=== PATIENT | male | born 1960 ===

== ENCOUNTER → 2023-08-20 19:33 | Outpatient (REF) | payer BC, SELFPAY | LOC: MRI 19:33 | PROVIDERS: ATTENDING PHYSICIAN Otolaryngology | DX: H93.12 Tinnitus, left ear (principal) | CPT/HCPCS: 70553; A9575 ==

== ENCOUNTER → 2024-02-03 13:17 | Outpatient (REF) | payer SELFPAY | LOC: HWRAD 13:17 | PROVIDERS: ATTENDING PHYSICIAN Family Medicine | DX: E78.2 Mixed hyperlipidemia (principal) | CPT/HCPCS: 75571 ==

== ENCOUNTER → 2024-02-03 13:20 | Outpatient (REF) | payer BC, SELFPAY | LOC: HWCARD 13:20 | PROVIDERS: ATTENDING PHYSICIAN Family Medicine | DX: E78.2 Mixed hyperlipidemia (principal) | CPT/HCPCS: 93005 ==